=== PATIENT | male | born 1955 | race Caucasian/White ===

== ENCOUNTER 2019-05-11 07:51 | Inpatient (IN) | payer BC ==
[~2019-05-11 07:51] MED LIST: Acetaminophen 325 MG Tab PO SCH; Bisacodyl 5 MG Tab PO PRN; CEFUROXIME ONE; Cyclobenzaprine 10 MG Tab PO PRN; EPINEPHRINE ONE; Famotidine 20 MG Tab PO SCH; HYDROmorphone 0.5 MG/0.5 ML Syringe IVPUSH PRN; Iodine/Sodium Iodide 2% Tincture 30 ML Bottle ONE; KETOROLAC ONE; Ketorolac 15 MG/ML SDV IVPUSH PRN; Lactated Ringers 1,000 ML IV SCH; Lidocaine 1% 4 ML ONE; Lidocaine 1%/Sod Bicarbonate in NS 8.4% 1 ML Syringe IDERM PRN; Magnesium Hydroxide 400 MG/5 ML Susp 30 ML Cup PO PRN; Midazolam 1 MG/ML 2 ML SDV ONE; Naloxone 0.4 MG/ML SDV IVPUSH PRN; Ondansetron 4 MG/2 ML SDV IVPUSH PRN; Pregabalin 25 MG Cap PO SCH; Propofol 200 MG/20 ML SDV ONE; SODIUM CHLORIDE 0.9% ONE; Sennosides 8.6 MG Tab PO PRN; Sodium Chloride 0.9% 10 ML Syringe FLUSH PRN; Vancomycin 1 GM SDV ONE; ceFAZolin 1 GM Vial ONE; ceFAZolin 2 GM in Premix Bag 1 BAG IV SCH; fentaNYL 100 MCG/2 ML SDV ONE; oxyCODONE ER 10 MG TAB.ER PO SCH
[2019-05-11] MEDS ORDERED: Bupivacaine 0.25% 10 ML SDV ONE (07:58)
[2019-05-11] MEDS ORDERED: ceFAZolin 1 GM Vial ONE (08:00)
--- NOTE | 2019-05-11 08:15 | PCM.PREANE ---
Preanesthetic Assessment - Procedure Proposed Procedure: right total hip - Anesthesia/Transfusion/Family Hx Anesthesia History: Prior Anesthesia Reaction Family History of Anesthesia Reaction: No Transfusion History: No Prior Transfusion(s) - Review of Systems General: No Symptoms Pulmonary: No Symptoms Cardiovascular: No Symptoms Gastrointestinal: No Symptoms Neurological: No Symptoms Other: Reports: None - Physical Assessment NPO Status Date: 05/10/19 NPO Status Time: 23:00 Height: 1.83 m Weight: 81.193 kg ASA Class: 2 Mental Status: Alert & Oriented x3 Airway Class: Mallampati = 1 Dentition: Reports: Partial Thyro-Mental Finger Breadths: 3 Mouth Opening Finger Breadths: 3 ROM/Head Extension: Limited/Partial (neck pain to the right) Lungs: Clear to Auscultation, Normal Respiratory Effort Cardiovascular: Regular Rate, Regular Rhythm - Lab Values: Laboratory Last Values MRSA (PCR) Negative 04/20/19 11:50 - Imaging/EKG Impressions: EKG NSR rate of 72 - Allergies Allergies/Adverse Reactions: Allergies Allergy/AdvReac Type Severity Reaction Status Date / Time morphine Allergy Hives Verified 05/10/19 13:16 - Anesthesia Plan Pre-Op Medication Ordered: Beta Kenny Beta Kenny: Metoprolol Med Last Dose Date: 05/10/19 Med Last Dose Time: 20:00 - Acknowledgements Anesthesia Type Planned: Spinal Pt an Appropriate Candidate for the Planned Anesthesia: Yes Alternatives and Risks of Anesthesia Discussed w Pt/Guardian: Yes Pt/Guardian Understands and Agrees with Anesthesia Plan: Yes PreAnesthesia Questionnaire HEENT History: Reports: None Cardiovascular History: Reports: Afib Respiratory History: Reports: PE Gastrointestinal History: Reports: None Genitourinary History: Reports: None Musculoskeletal History: Reports: Osteoarthritis Neurological History: Reports: Other (See Below) Other Neuro History: lumbar degenerative disc disease Psychiatric History: Reports: None Endocrine/Metabolic History: Reports: None Hematologic History: Reports: None Immunologic History: Reports: None Oncologic (Cancer) History: Reports: None Dermatologic History: Reports: None - Past Surgical History Head Surgeries/Procedures: Reports: None HEENT Surgical History: Reports: Myringotomy w Tube(s) Cardiovascular Surgical History: Reports: None Respiratory Surgical History: Reports: None GI Surgical History: Reports: None Female Surgical History: Reports: None Male Surgical History: Reports: None Endocrine Surgical History: Reports: None Neurological Surgical History: Reports: Laminectomy Other Neurological Surgeries/Procedures: L4L5 LAMINECTOMY Musculoskeletal Surgical History: Reports: Other (See Below) Other Musculoskeletal Surgeries/Procedures:: RIGHT TIB/FIB FX WITH MULTIPLE SURGIERES, LEFT ACL REPAIR Oncologic Surgical History: Reports: None Dermatological Surgical History: Reports: None - SUBSTANCE USE Smoking Status *Q: Never Smoker Tobacco Use Within Last Twelve Months: No Second Hand Smoke Exposure: No Days Per Week of Alcohol Use: 0 Number of Drinks Per Day: 0 Total Drinks Per Week: 0 Recreational Drug Use History: No - HOME MEDS Home Medications: Home Meds Aspirin [Ecotrin EC] 81 mg PO DAILY 05/10/19 [History] Cholecalciferol (Vitamin D3) [Vitamin D3] 5,000 unit PO DAILY 05/10/19 [History] Meloxicam 15 mg PO DAILY PRN 05/10/19 [History] Metoprolol Succinate 25 mg PO BEDTIME 05/10/19 [History] Multivitamin [Daily [place]] 1 tab PO DAILY 05/10/19 [History] - CURRENT (IN HOUSE) MEDS Current Meds: Current Medications Acetaminophen (Tylenol) 975 mg PO ONETIME HAZEL Stop: 05/11/19 14:00 Apixaban (Eliquis) 2.5 mg PO BID HAZEL Bisacodyl (Dulcolax) 5 mg PO DAILY PRN PRN Reason: Constipation Cyclobenzaprine HCl (Flexeril) 10 mg PO TID PRN PRN Reason: Spasms Docusate Sodium (Colace) 100 mg PO BID HAZEL Famotidine (Pepcid) 20 mg PO Q12H HAZEL Hydromorphone HCl (Dilaudid) 0.2 mg IVPUSH Q2H PRN PRN Reason: Pain (moderate 4-6) Lactated Ringer's (Ringers, Lactated) 1,000 mls @ 125 mls/hr IV ASDIRECTED HAZEL Stop: 05/11/19 23:00 Cefazolin Sodium/Dextrose 2 gm (/ Premix) 50 mls @ 100 mls/hr IV Q8H HAZEL Stop: 05/11/19 23:29 Ketorolac Tromethamine (Toradol) 15 mg IVPUSH Q6H PRN PRN Reason: Pain Lidocaine/Sodium Bicarbonate (Buffered Lidocaine 1% In Ns 8.4%) 0.25 ml IDERM ONETIME PRN PRN Reason: Prior to IV Start Stop: 05/11/19 23:00 Magnesium Hydroxide (Milk Of Magnesia) 30 ml PO BID PRN PRN Reason: Constipation Naloxone HCl (Narcan) 0.1 mg IVPUSH Q5M PRN PRN Reason: Oversedation Ondansetron HCl (Zofran) 4 mg IVPUSH Q6H PRN PRN Reason: Nausea/Vomiting Oxycodone HCl (Oxycontin) 10 mg PO ONETIME HAZEL Stop: 05/11/19 14:00 Oxycodone/Acetaminophen (Percocet 325-5 Mg) 1 - 2 tab PO Q4H PRN PRN Reason: Pain Pregabalin (Lyrica) 50 mg PO ONETIME HAZEL Stop: 05/11/19 14:00 Senna (Senna) 8.6 mg PO BID PRN PRN Reason: Constipation Sodium Chloride (Saline Flush) 10 ml FLUSH ASDIRECTED PRN PRN Reason: Keep Vein Open Stop: 05/11/19 23:00 Discontinued Medications Bupivacaine HCl (Sensorcaine-Mpf 0.25%) Confirm Administered Dose 30 ml .ROUTE .STK-MED ONE Stop: 05/11/19 07:59 Cefazolin Sodium (Ancef) Confirm Administered Dose 2 gm .ROUTE .STK-MED ONE Stop: 05/11/19 07:39 Epinephrine HCl 0.3 mg/Cefuroxime Sodium 750 mg/Ketorolac Tromethamine 30 mg/ Sodium Chloride 27.9 ml 0 mg .XX ONETIME ONE Stop: 05/11/19 06:38 Fentanyl (Sublimaze) Confirm Administered Dose 100 mcg .ROUTE .STK-MED ONE Stop: 05/11/19 07:38 Lidocaine HCl (Xylocaine-Mpf 1%) Confirm Administered Dose 4 mls @ as directed .ROUTE .STK-MED ONE Stop: 05/11/19 07:38 Iodine (Iodine 2% Mild Tincture) Confirm Administered Dose 30 ml .ROUTE .STK- MED ONE Stop: 05/11/19 07:51 Midazolam HCl (Versed 1 Mg/Ml) Confirm Administered Dose 2 mg .ROUTE .STK-MED ONE Stop: 05/11/19 07:38 Propofol (Diprivan 20 Ml) Confirm Administered Dose 600 mg .ROUTE .STK-MED ONE Stop: 05/11/19 07:38 Tranexamic Acid (Cyklokapron) Confirm Administered Dose 1,000 mg .ROUTE .STK- MED ONE Stop: 05/11/19 07:51 Vancomycin HCl (Vancomycin) Confirm Administered Dose 1 gm .ROUTE .STK-MED ONE Stop: 05/11/19 07:51
[2019-05-11] MEDS ORDERED: Ondansetron 4 MG/2 ML SDV ONE (09:54)
[2019-05-11] MEDS ORDERED: Dexamethasone 4 MG/ML 5 ML MDV ONE (09:54)
[2019-05-11] MEDS ORDERED: fentaNYL 100 MCG/2 ML SDV IVPUSH PRN (10:40)
[2019-05-11] MEDS ORDERED: Ondansetron 4 MG/2 ML SDV IVPUSH PRN (10:40)
[2019-05-11] MEDS ORDERED: HYDROmorphone 0.5 MG/0.5 ML Syringe IVPUSH PRN (10:40)
[2019-05-11] MEDS ORDERED: Propofol 200 MG/20 ML SDV ONE (10:46)
[2019-05-11] MEDS ORDERED: Ketorolac 30 MG/ML SDV ONE (11:28)
--- NOTE | 2019-05-11 11:49 | PCM.POSTAN ---
POST ANESTHESIA ASSESSMENT - MENTAL STATUS Mental Status: Alert, Oriented - VITAL SIGNS Vital Signs: Last Vital Signs 1142 92/60 65 8 97.9 98% - RESPIRATORY Respiratory Status: Respiratory Rate WNL, Airway Patent, O2 Saturation Stable, Supplemental Oxygen - CARDIOVASCULAR CV Status: Pulse Rate WNL, Blood Pressure Stable - GASTROINTESTINAL GI Status: No Symptoms - PAIN Pain Score: 0 - POST OP HYDRATION Hydration Status: Adequate & Stable
[2019-05-11] MEDS: ceFAZolin 2 GM in Premix Bag 1 BAG IV SCH (15:33)
[2019-05-11] MEDS: Acetaminophen/oxyCODONE 325-5 MG Tab PO PRN ×2 (16:12→20:41)
--- NOTE | 2019-05-11 16:14 | CR ---
Pelvis and right hip: AP view of the pelvis was obtained as well as lateral view of the right hip. Comparison: No prior pelvis or hip exam. Right hip prosthesis is seen. Components are aligned. Soft tissue air is noted from the surgical procedure. Mild joint space narrowing is seen within the left hip. No acute abnormality is seen. Impression: 1. Recently placed right hip prosthesis which appears within normal limits. 2. Mild joint space narrowing within the left hip. Diagnostic code #2 This report was dictated in [place] Standard Time
[2019-05-11] MEDS: Docusate Sodium 100 MG Cap PO SCH (20:40)
[2019-05-11] MEDS: Famotidine 20 MG Tab PO SCH (20:41)
[2019-05-11] MEDS ORDERED: Metoprolol Succinate 25 MG Tab.ER PO SCH (21:00)
[2019-05-12] MEDS: Acetaminophen/oxyCODONE 325-5 MG Tab PO PRN ×2 (00:37→06:22)
[2019-05-12] MEDS: ceFAZolin 2 GM in Premix Bag 1 BAG IV SCH ×2 (00:40→06:30)
--- NOTE | 2019-05-12 07:50 | PCM48HPAN ---
Post Anesthesia Note - EVALUATION WITHIN 48HRS OF ANESTHETIC Vital Signs in Normal Range: Yes Patient Participated in Evaluation: Yes Respiratory Function Stable: Yes Airway Patent: Yes Cardiovascular Function Stable: Yes Hydration Status Stable: Yes Pain Control Satisfactory: Yes Nausea and Vomiting Control Satisfactory: Yes Mental Status Recovered: Yes Vital Signs: Last Vital Signs Temp 36.3 C 05/12/19 04:54 Pulse 55 L 05/12/19 04:54 Resp 16 05/12/19 04:54 BP 128/81 05/12/19 04:54 Pulse Ox 95 05/12/19 04:54
[2019-05-12] MEDS ORDERED: Multivitamins,Therapeutic Tab PO SCH (09:00)
[2019-05-12] MEDS ORDERED: Aspirin 81 MG Tab.EC PO SCH (09:00)
[2019-05-12] MEDS ORDERED: Apixaban 2.5 MG Tab PO SCH (09:00)
[2019-05-12] MEDS ORDERED: Cholecalciferol (Vitamin D3) 5,000 UNIT Tab PO SCH (09:00)
[2019-05-12] MEDS: Famotidine 20 MG Tab PO SCH (09:17)
[2019-05-12] MEDS: Docusate Sodium 100 MG Cap PO SCH (09:18)
--- NOTE | 2019-05-12 11:05 | PCM.CONS ---
H&P History of Present Illness - General Date of Service: 05/12/19 Admit Problem/Dx: Admission Diagnosis/Problem Admission Diagnosis/Problem Osteoarthritis of hip - History of Present Illness Initial Comments - Free Text/Narative: Patient comes in for elective right hip replacement for osteoarthritis Right Hip Pain Score (Numeric/FACES): 5 - Related Data Allergies/Adverse Reactions: Allergies Allergy/AdvReac Type Severity Reaction Status Date / Time morphine Allergy Hives Verified 05/11/19 12:40 Home Medications: Home Meds Aspirin [Ecotrin EC] 162 mg PO DAILY 05/10/19 [History] Cholecalciferol (Vitamin D3) [Vitamin D3] 5,000 unit PO DAILY 05/10/19 [History] Metoprolol Succinate 12.5 mg PO BEDTIME 05/10/19 [History] Multivitamin [Daily [place]] 1 tab PO DAILY 05/10/19 [History] Acetaminophen/oxyCODONE [Percocet 325-5 MG] 1 - 2 tab PO Q4H PRN #60 tablet 05/19 [Rx] Apixaban [Eliquis] 2.5 mg PO BID #70 tablet 05/12/19 [Rx] Bisacodyl [Dulcolax] 5 mg PO DAILY PRN tablet 05/12/19 [Rx] Cyclobenzaprine [Flexeril] 10 mg PO TID PRN #40 tablet 05/12/19 [Rx] Docusate Sodium [Colace] 100 mg PO BID cap 05/12/19 [Rx] Famotidine [Pepcid] 20 mg PO Q12H tablet 05/12/19 [Rx] Sennosides [Senna] 8.6 mg PO BID PRN tablet 05/12/19 [Rx] Past Medical History HEENT History: Reports: None Cardiovascular History: Reports: Afib Respiratory History: Reports: PE Gastrointestinal History: Reports: None Genitourinary History: Reports: None Musculoskeletal History: Reports: Osteoarthritis Neurological History: Reports: Other (See Below) Other Neuro History: lumbar degenerative disc disease Psychiatric History: Reports: None Endocrine/Metabolic History: Reports: None Hematologic History: Reports: None Immunologic History: Reports: None Oncologic (Cancer) History: Reports: None Dermatologic History: Reports: None - Past Surgical History Head Surgeries/Procedures: Reports: None HEENT Surgical History: Reports: Myringotomy w Tube(s) Cardiovascular Surgical History: Reports: None Respiratory Surgical History: Reports: None GI Surgical History: Reports: None Male Surgical History: Reports: None Endocrine Surgical History: Reports: None Neurological Surgical History: Reports: Laminectomy Other Neurological Surgeries/Procedures: L4L5 LAMINECTOMY Musculoskeletal Surgical History: Reports: Other (See Below) Other Musculoskeletal Surgeries/Procedures:: RIGHT TIB/FIB FX WITH MULTIPLE SURGIERES, LEFT ACL reconstruction with cadaver ligament Oncologic Surgical History: Reports: None Dermatological Surgical History: Reports: None Social & Family History - Tobacco Use Smoking Status *Q: Never Smoker Second Hand Smoke Exposure: No - Caffeine Use Caffeine Use: Reports: None - Alcohol Use Days Per Week of Alcohol Use: 0 Number of Drinks Per Day: 0 Total Drinks Per Week: 0 - Recreational Drug Use Recreational Drug Use: No Drug Use in Last 12 Months: No H&P Review of Systems - Review of Systems: Review Of Systems: See Below General: Denies: Fever, Chills, Malaise, Weakness, Fatigue HEENT: Denies: Headaches, Post Nasal Drip, Sinus Congestion, Sore Throat, Vertigo Pulmonary: Denies: Shortness of Breath, Wheezing, Pleuritic Chest Pain, Cough, Sputum, Hemoptysis Cardiovascular: Denies: Chest Pain, Palpitations, Dyspnea on Exertion, Orthopnea , PND, Edema, Lightheadedness, Syncope, Claudication Gastrointestinal: Denies: Abdominal Pain, Anorexia, Black Stool, Bloody Stool, Constipation, Diarrhea, Decreased Appetite, Difficulty Swallowing, Distension, Nausea, Vomiting Genitourinary: Denies: Dysuria, Frequency, Burning, Pain, Urgency Musculoskeletal: Reports: Joint Pain, Joint Swelling, Muscle Pain Skin: Denies: Cyanosis, Jaundice, Mottled, Diaphoresis, Dryness, Bruising Psychiatric: Denies: Confusion, Depression, Mood Lability, Anxiety, Agitation Neurological: Denies: Confusion, Dizziness, Headache, Numbness Hematologic/Lymphatic: Denies: Anemia, Easy Bleeding Exam - Exam Exam: See Below - Vital Signs Vital Signs: Last Vital Signs Temp 97.5 F 05/12/19 09:11 Pulse 57 L 05/12/19 09:11 Resp 18 05/12/19 09:11 BP 108/63 05/12/19 09:11 Pulse Ox 99 05/12/19 09:11 Weight: 85.684 kg - Exam General: Alert, Oriented, Cooperative. No: Mild Distress HEENT: Conjunctiva Clear, EACs Clear, EOMI, Hearing Intact, Mucosa Moist & [place] Neck: Supple, Trachea Midline, +2 Carotid Pulse wo Bruit, Full Range of Motion. No: Lymphadenopathy Lungs: Clear to Auscultation, Normal Respiratory Effort. No: Crackles, Rales, Rub, Stridor, Wheezing Cardiovascular: Regular Rate, Regular Rhythm. No: Systolic Murmur, Diastolic Murmur, Rubs, Gallop/S3, Gallop/S4 GI/Abdominal Exam: Normal Bowel Sounds, Soft, Non-Tender, No Organomegaly, No Distention Back Exam: Normal Inspection Extremities: Normal Inspection, Limited Range of Motion Neuro Extensive - Mental Status: Alert, Oriented x3, Normal Mood/Affect Psychiatric: Alert - Patient Data Result Diagrams: 05/12/19 05:25 05/12/19 05:25 Sepsis Event Note - Evaluation Sepsis Screening Result: No Definite Risk - Focused Exam Vital Signs: Vital Signs Temp Pulse Resp BP Pulse Ox 05/12/19 09:11 97.5 F 57 L 18 108/63 99 05/12/19 04:54 97.3 F 55 L 16 128/81 95 05/12/19 00:40 97.3 F 62 16 137/81 95 Date Exam was Performed: 05/12/19 Time Exam was Performed: 10:58 Consult PN Assessment/Plan POD#: 1 Procedures: Procedures ANTINUCLEAR ANTIBODIES (10/30/16) ASSAY OF CREATININE (11/29/18) C-REACTIVE PROTEIN (10/30/16) COMPLETE CBC W/AUTO DIFF WBC (10/30/16) DXA BONE DENSITY AXIAL (05/04/19) MRI LUMBAR SPINE W/O & W/DYE (11/29/18) RBC SED RATE AUTOMATED (10/30/16) RHEUMATOID FACTOR TEST QUAL (10/30/16) ROUTINE VENIPUNCTURE (11/29/18) VITAMIN D 25 HYDROXY (10/06/13) X-RAY EXAM CHEST 2 VIEWS (05/04/19) X-RAY EXAM L-2 SPINE 4/>VWS (11/29/18) X-RAY EXAM NECK SPINE 2-3 VW (05/04/19) (1) Osteoarthritis of right hip SNOMED Code(s): 123933816240700 Code(s): M16.11 - UNILATERAL PRIMARY OSTEOARTHRITIS, RIGHT HIP Current Visit: Yes Qualifiers: Osteoarthritis type: primary Qualified Code(s): M16.11 - Unilateral primary osteoarthritis, right hip Assessment:: SERGIO on 05/11 No post operative anemia Will be discharged on Eliquis Aspirin on hold (2) Atrial fibrillation SNOMED Code(s): 65683821 Code(s): I48.91 - UNSPECIFIED ATRIAL FIBRILLATION Current Visit: Yes Qualifiers: Atrial fibrillation type: paroxysmal Qualified Code(s): I48.0 - Paroxysmal atrial fibrillation Assessment:: Rate controlled with metoprolol (3) On aspirin at home SNOMED Code(s): 006125081 Code(s): Z79.82 - CUSTODIAL (CURRENT) USE OF ASPIRIN Current Visit: Yes Assessment:: Will place on hold Recommend PCP to re-evaluate after Eliquis has been discontinued (4) Hx pulmonary embolism SNOMED Code(s): 685550810 Code(s): Z86.711 - PERSONAL HISTORY OF PULMONARY EMBOLISM Current Visit: Yes Comment: Provoked 1993- after tibia fracture repair surgery On coumadin for <6months after Problem List Initiated/Reviewed/Updated: Yes Plan: Discharge today on Eliquis Hold Aspirin Recommend PCP to evaluate re-starting aspirin as an outpatient after patient is off Eliquis Requesting Provider: Julio Cesar [place] Date Consult Requested: 05/11/19 Reason for Consult: Stefany-operative evaluation Patient History Reviewed: Yes Admission H&P Reviewed: Yes Notified Requestor: Yes Time Spent (in minutes): 75
--- NOTE | 2019-05-12 15:03 | PCM.SURGPN ---
- General Info Date of Service: 05/12/19 POD#: 1 Functional Status: Reports: Pain Controlled, Tolerating Diet, Ambulating, Urinating, Incentive Spirometry, Other (The pt states he is doing well.) - Patient Data Vitals - Most Recent: Last Vital Signs Temp 97.5 F 05/12/19 09:11 Pulse 57 L 05/12/19 09:11 Resp 18 05/12/19 09:11 BP 108/63 05/12/19 09:11 Pulse Ox 99 05/12/19 09:11 Weight - Most Recent: 188 lb 14.4 oz I&O - Last 24 Hours: Intake & Output 05/12/19 05/12/19 05/12/19 06:59 14:59 22:59 Intake Total 950 120 Output Total 1750 Balance -800 120 Lab Results Last 24 Hrs: Laboratory Results - last 24 hr 05/12/19 05/12/19 Range/Units 05:25 05:25 WBC 11.44 H (4.23-9.07) K/mm3 RBC 4.82 (4.63-6.08) M/mm3 Hgb 14.2 (13.7-17.5) gm/dl Hct 41.8 (40.1-51.0) % MCV 86.7 (79.0-92.2) fl MCH 29.5 (25.7-32.2) pg MCHC 34.0 (32.2-35.5) g/dl RDW Std Deviation 39.7 (35.1-43.9) fL Plt Count 255 (163-337) K/mm3 MPV 9.1 L (9.4-12.3) fl Sodium 136 (136-145) mEq/L Potassium 4.1 (3.5-5.1) mEq/L Chloride 103 (98-107) mEq/L Carbon Dioxide 26 (21-32) mEq/L Anion Gap 11.1 (5-15) BUN 20 H (7-18) mg/dL Creatinine 1.2 (0.7-1.3) mg/dL Est Cr Clr Drug Dosing 70.95 mL/min Estimated GFR (MDRD) > 60 (>60) mL/min BUN/Creatinine Ratio 16.7 (14-18) Glucose 133 H (80-115) mg/dL Calcium 8.4 L (8.5-10.1) mg/dL Total Bilirubin 0.6 (0.2-1.0) mg/dL AST 34 (15-37) U/L ALT 31 (16-63) U/L Alkaline Phosphatase 62 (46-116) U/L Total Protein 6.2 L (6.4-8.2) g/dl Albumin 3.2 L (3.4-5.0) g/dl Globulin 3.0 gm/dL Albumin/Globulin Ratio 1.1 (1-2) Med Orders - Current: Current Medications Apixaban (Eliquis) 2.5 mg PO BID [facility] Last Admin: 05/12/19 09:18 Dose: 2.5 mg Aspirin (Halfprin) 81 mg PO DAILY [facility] Last Admin: 05/12/19 09:18 Dose: 81 mg Bisacodyl (Dulcolax) 5 mg PO DAILY PRN PRN Reason: Constipation Cholecalciferol (Vitamin D3) 5,000 unit PO DAILY [facility] Last Admin: 05/12/19 09:18 Dose: 5,000 unit Cyclobenzaprine HCl (Flexeril) 10 mg PO TID PRN PRN Reason: Spasms Last Admin: 05/11/19 20:40 Dose: 10 mg Docusate Sodium (Colace) 100 mg PO BID [facility] Last Admin: 05/12/19 09:18 Dose: 100 mg Famotidine (Pepcid) 20 mg PO Q12H [facility] Last Admin: 05/12/19 09:17 Dose: 20 mg Hydromorphone HCl (Dilaudid) 0.2 mg IVPUSH Q2H PRN PRN Reason: Pain (moderate 4-6) Ketorolac Tromethamine (Toradol) 15 mg IVPUSH Q6H PRN PRN Reason: Pain Last Admin: 05/11/19 19:30 Dose: 15 mg Magnesium Hydroxide (Milk Of Magnesia) 30 ml PO BID PRN PRN Reason: Constipation Metoprolol Succinate (Toprol Xl) 25 mg PO BEDTIME [facility] Last Admin: 05/11/19 20:40 Dose: 25 mg Multivitamins (Thera) 1 each PO DAILY [facility] Last Admin: 05/12/19 09:17 Dose: 1 each Naloxone HCl (Narcan) 0.1 mg IVPUSH Q5M PRN PRN Reason: Oversedation Ondansetron HCl (Zofran) 4 mg IVPUSH Q6H PRN PRN Reason: Nausea/Vomiting Oxycodone/Acetaminophen (Percocet 325-5 Mg) 1 - 2 tab PO Q4H PRN PRN Reason: Pain Last Admin: 05/12/19 06:22 Dose: 2 tab Senna (Senna) 8.6 mg PO BID PRN PRN Reason: Constipation Discontinued Medications Acetaminophen (Tylenol) 975 mg PO ONETIME [facility] Stop: 05/11/19 14:00 Last Admin: 05/11/19 08:13 Dose: 975 mg Bupivacaine HCl (Sensorcaine-Mpf 0.25%) Confirm Administered Dose 30 ml .ROUTE .STK-MED ONE Stop: 05/11/19 07:59 Last Admin: 05/11/19 11:06 Dose: 30 ml Cefazolin Sodium (Ancef) Confirm Administered Dose 2 gm .ROUTE .STK-MED ONE Stop: 05/11/19 07:39 Last Admin: 05/11/19 10:58 Dose: 2 gm Cefazolin Sodium (Ancef) 2 gm .ROUTE .STK-MED ONE Stop: 05/11/19 08:01 Epinephrine HCl 0.3 mg/Cefuroxime Sodium 750 mg/Ketorolac Tromethamine 30 mg/ Sodium Chloride 27.9 ml 0 mg .XX ONETIME ONE Stop: 05/11/19 06:38 Last Admin: 05/11/19 11:07 Dose: 780.3 mg Dexamethasone (Dexamethasone) Confirm Administered Dose 20 mg .ROUTE .STK-MED ONE Stop: 05/11/19 09:55 Famotidine (Pepcid) 20 mg PO Q12H [facility] Last Admin: 05/11/19 13:11 Dose: Not Given Fentanyl (Sublimaze) Confirm Administered Dose 100 mcg .ROUTE .STK-MED ONE Stop: 05/11/19 07:38 Fentanyl (Sublimaze) 50 mcg IVPUSH Q5M PRN PRN Reason: Pain Stop: 05/11/19 18:00 Hydromorphone HCl (Dilaudid) 0.5 mg IVPUSH Q10M PRN PRN Reason: Pain (severe 7-10) Stop: 05/11/19 18:00 Lactated Ringer's (Ringers, Lactated) 1,000 mls @ 125 mls/hr IV ASDIRECTED [facility] Stop: 05/11/19 23:00 Last Admin: 05/11/19 08:40 Dose: 125 mls/hr Lidocaine HCl (Xylocaine-Mpf 1%) Confirm Administered Dose 4 mls @ as directed .ROUTE .STK-MED ONE Stop: 05/11/19 07:38 Cefazolin Sodium/Dextrose 2 gm (/ Premix) 50 mls @ 100 mls/hr IV Q8H [facility] Stop: 05/12/19 07:59 Last Admin: 05/12/19 06:30 Dose: 100 mls/hr Iodine (Iodine 2% Mild Tincture) Confirm Administered Dose 30 ml .ROUTE .STK- MED ONE Stop: 05/11/19 07:51 Last Admin: 05/11/19 11:00 Dose: 18 ml Ketorolac Tromethamine (Toradol) Confirm Administered Dose 30 mg .ROUTE .STK- MED ONE Stop: 05/11/19 11:29 Lidocaine/Sodium Bicarbonate (Buffered Lidocaine 1% In Ns 8.4%) 0.25 ml IDERM ONETIME PRN PRN Reason: Prior to IV Start Stop: 05/11/19 23:00 Last Admin: 05/11/19 08:40 Dose: 0.25 ml Midazolam HCl (Versed 1 Mg/Ml) Confirm Administered Dose 2 mg .ROUTE .STK-MED ONE Stop: 05/11/19 07:38 Ondansetron HCl (Zofran) Confirm Administered Dose 4 mg .ROUTE .STK-MED ONE Stop: 05/11/19 09:55 Ondansetron HCl (Zofran) 4 mg IVPUSH ONETIME PRN PRN Reason: Nausea/Vomiting Stop: 05/11/19 18:00 Oxycodone HCl (Oxycontin) 10 mg PO ONETIME [facility] Stop: 05/11/19 14:00 Last Admin: 05/11/19 08:13 Dose: 10 mg Pregabalin (Lyrica) 50 mg PO ONETIME [facility] Stop: 05/11/19 14:00 Last Admin: 05/11/19 08:14 Dose: 50 mg Propofol (Diprivan 20 Ml) Confirm Administered Dose 600 mg .ROUTE .STK-MED ONE Stop: 05/11/19 07:38 Propofol (Diprivan 20 Ml) Confirm Administered Dose 600 mg .ROUTE .STK-MED ONE Stop: 05/11/19 10:47 Sodium Chloride (Saline Flush) 10 ml FLUSH ASDIRECTED PRN PRN Reason: Keep Vein Open Stop: 05/11/19 23:00 Tranexamic Acid (Cyklokapron) Confirm Administered Dose 1,000 mg .ROUTE .STK- MED ONE Stop: 05/11/19 07:51 Last Admin: 05/11/19 11:09 Dose: 1,000 mg Vancomycin HCl (Vancomycin) Confirm Administered Dose 1 gm .ROUTE .STK-MED ONE Stop: 05/11/19 07:51 Last Admin: 05/11/19 11:08 Dose: 1 gm - Exam Wound/Incisions: Dressing Dry and Intact General: Alert, Cooperative, No Acute Distress Lungs: Normal Respiratory Effort Extremities: Other (NVS intact for BLE. Suki's negative. Right thigh soft, nontender.) Sepsis Event Note - Evaluation Sepsis Screening Result: No Definite Risk - Focused Exam Vital Signs: Vital Signs Temp Pulse Resp BP Pulse Ox 05/12/19 09:11 97.5 F 57 L 18 108/63 99 05/12/19 04:54 97.3 F 55 L 16 128/81 95 Date Exam was Performed: 05/12/19 Time Exam was Performed: 15:00 - Problem List Review Problem List Initiated/Reviewed/Updated: Yes - My Orders Last 24 Hours: Active Orders 24 hr Category Date Time Status Ready for Discharge [RC] PER UNIT ROUTINE Care 05/12/19 06:58 Active Apixaban [Eliquis] Med 05/12/19 09:00 Active 2.5 mg PO BID Aspirin [Halfprin] Med 05/12/19 09:00 Active 81 mg PO DAILY Cholecalciferol (Vitamin D3) [Vitamin D3] Med 05/12/19 09:00 Active 5,000 unit PO DAILY Docusate Sodium [Colace] Med 05/11/19 21:00 Active 100 mg PO BID Famotidine [Pepcid] Med 05/11/19 21:00 Active 20 mg PO Q12H Metoprolol Succinate [Toprol XL] Med 05/11/19 21:00 Active 25 mg PO BEDTIME Multivitamins,Therapeutic [Thera] Med 05/12/19 09:00 Active 1 each PO DAILY Medication Orders Apixaban (Eliquis) 2.5 mg PO BID [facility] Last Admin: 05/12/19 09:18 Dose: 2.5 mg Aspirin (Halfprin) 81 mg PO DAILY [facility] Last Admin: 05/12/19 09:18 Dose: 81 mg Bisacodyl (Dulcolax) 5 mg PO DAILY PRN PRN Reason: Constipation Cholecalciferol (Vitamin D3) 5,000 unit PO DAILY [facility] Last Admin: 05/12/19 09:18 Dose: 5,000 unit Cyclobenzaprine HCl (Flexeril) 10 mg PO TID PRN PRN Reason: Spasms Last Admin: 05/11/19 20:40 Dose: 10 mg Docusate Sodium (Colace) 100 mg PO BID [facility] Last Admin: 05/12/19 09:18 Dose: 100 mg Admin: 05/11/19 20:40 Dose: 100 mg Famotidine (Pepcid) 20 mg PO Q12H [facility] Last Admin: 05/12/19 09:17 Dose: 20 mg Admin: 05/11/19 20:41 Dose: 20 mg Hydromorphone HCl (Dilaudid) 0.2 mg IVPUSH Q2H PRN PRN Reason: Pain (moderate 4-6) Ketorolac Tromethamine (Toradol) 15 mg IVPUSH Q6H PRN PRN Reason: Pain Last Admin: 05/11/19 19:30 Dose: 15 mg Magnesium Hydroxide (Milk Of Magnesia) 30 ml PO BID PRN PRN Reason: Constipation Metoprolol Succinate (Toprol Xl) 25 mg PO BEDTIME [facility] Last Admin: 05/11/19 20:40 Dose: 25 mg Multivitamins (Thera) 1 each PO DAILY [facility] Last Admin: 05/12/19 09:17 Dose: 1 each Naloxone HCl (Narcan) 0.1 mg IVPUSH Q5M PRN PRN Reason: Oversedation Ondansetron HCl (Zofran) 4 mg IVPUSH Q6H PRN PRN Reason: Nausea/Vomiting Oxycodone/Acetaminophen (Percocet 325-5 Mg) 1 - 2 tab PO Q4H PRN PRN Reason: Pain Last Admin: 05/12/19 06:22 Dose: 2 tab Admin: 05/12/19 00:37 Dose: 2 tab Admin: 05/11/19 20:41 Dose: 2 tab Admin: 05/11/19 16:12 Dose: 2 tab Senna (Senna) 8.6 mg PO BID PRN PRN Reason: Constipation - Assessment Assessment (Free Text/Narrative):: POD#1 - right SERGIO - Plan Plan (Free Text/Narrative):: 1. Hgb 14.2. 2. Eliquis 2.5mg PO BID (due to pt with hx PE), frequent mobility, TEDs. 3. SERGIO precautions. WBAT RLE. 4. Discharge to home today if cleared by Hospitalist service. The pt's case was discussed with Dr. Washington.
--- NOTE | 2019-05-12 15:04 | PCM.DCSUM1 ---
Discharge Summary - Hospital Course Brief History: Max is a 63 yo male who underwent right SERGIO with Dr. Washington on 05-11-2019. The procedure was completed under spinal anesthesia with sedation. The pt tolerated the procedure well and was admitted to the Medical-Surgical Unit. Medical management was provided by the Hospitalist service. The pt's Hospital course was uneventful. The pt's Hgb on POD#1 was 14.2. On POD#1, Eliquis 2.5mg PO BID was initiated for VTE prophylaxis due to pt's personal hx PE. SCDs and TEDs were also ordered. A Mepilex dressing was placed at the incision site at the time of surgery and remained clean and dry. The pt participated in P.T. and O.T. and progressed well. He followed the SERGIO precautions. The pt was allowed to WBAT. On POD#1, the pt was deemed appropriate to discharge to home with his . - Discharge Data Discharge Date: 05/12/19 Discharge Disposition: Home, Self-Care 01 Condition: Good - Referral to Home Health Primary Care Physician: LINA Vicente - Patient Summary/Data Consults: Consultations 05/11/19 06:37 OT Evaluation and Treatment [CONS] Routine PT Evaluation and Treatment [CONS] Routine 05/11/19 06:38 Consult to Physician [CONS] Routine - Patient Instructions Diet: Usual Diet as Tolerated Activity: Apply Ice, As Tolerated, Elevate Extremity, Full Weight Bearing Activity, Other: Follow the total hip precautions. Driving: Do Not Drive Showering/Bathing: May Shower Wound/Incision Care: Keep Operative Site/Wound Site Clean and Dry, Do NOT Change Dressing Notify Provider of: Fever, Increased Pain, Swelling and Redness, Drainage, Nausea and/or Vomiting Other/Special Instructions: Please get up and moving around EVERY HOUR while awake. This helps to prevent blood clots. Please use your walker and have help with mobility as needed. Take a short walk in your home every hour while awake. Please take Eliquis 2.5mg twice daily. This medication is a blood thinner to decrease the risk of blood clots in the lungs and the legs. At home , please complete the exercises that you learned during the Hospital stay. Schedule for physical therapy. Follow the total hip precautions. Use the pain medication as needed. The medication may cause drowsiness and constipation. Contact your primary care provider for instructions if you are constipated. You may use a stool softener like docusate sodium or Colace 100mg twice daily and/or a laxative like Miralax daily for constipation. Increase your water and fiber intake while you are using the pain medication. Discontinue use of the pain medication as soon as able. Please do not use other medications that may cause drowsiness (other pain medications, anxiety pills, cold medications, sleeping pills, etc) while using the prescription pain medication. Do not use alcohol while using the pain medication. You may use acetaminophen or Tylenol for pain management, however, please ensure you are not using over 4000 mg or 4 grams of acetaminophen per day from all sources. Your pain medication has 325mg of acetaminophen per tablet. At this time, please do not use ibuprofen ( Motrin, Advil) or naproxen (Aleve) for pain management as you are using the Eliquis. When the Eliquis course is completed in 5 weeks, you could use ibuprofen or naproxen for pain management (if this is allowed by your primary care provider). Wear the JOCE hose during the day and you may remove these at night. Elevate the limb to decrease swelling. Place ice to the area often. Place a towel between your skin and the blue pad. Use the incentive spirometer often. Take deep breaths throughout the day. Please keep the dressing in place until follow-up. Notify the Clinic if the dressing becomes saturated. Increase your protein intake while you are healing. If you have diabetes, please closely monitor your blood sugars and notify your primary care provider with abnormal values. Elevated blood sugars increases the risk of infection. Call the Clinic with questions or concerns - [phone]. - Discharge Plan *PRESCRIPTION DRUG MONITORING PROGRAM REVIEWED*: No *COPY OF PRESCRIPTION DRUG MONITORING REPORT IN PATIENT KADY: No Prescriptions/Med Rec: Acetaminophen/oxyCODONE [Percocet 325-5 MG] 1 - 2 tab PO Q4H PRN #60 tablet PRN Reason: Pain Apixaban [Eliquis] 2.5 mg PO BID #70 tablet Cyclobenzaprine [Flexeril] 10 mg PO TID PRN #40 tablet PRN Reason: Spasms Home Medications: Home Meds Aspirin [Ecotrin EC] 162 mg PO DAILY 05/10/19 [History] Cholecalciferol (Vitamin D3) [Vitamin D3] 5,000 unit PO DAILY 05/10/19 [History] Metoprolol Succinate 12.5 mg PO BEDTIME 05/10/19 [History] Multivitamin [Daily [place]] 1 tab PO DAILY 05/10/19 [History] Acetaminophen/oxyCODONE [Percocet 325-5 MG] 1 - 2 tab PO Q4H PRN #60 tablet 05/19 [Rx] Apixaban [Eliquis] 2.5 mg PO BID #70 tablet 05/12/19 [Rx] Bisacodyl [Dulcolax] 5 mg PO DAILY PRN tablet 05/12/19 [Rx] Cyclobenzaprine [Flexeril] 10 mg PO TID PRN #40 tablet 05/12/19 [Rx] Docusate Sodium [Colace] 100 mg PO BID cap 05/12/19 [Rx] Famotidine [Pepcid] 20 mg PO Q12H tablet 05/12/19 [Rx] Sennosides [Senna] 8.6 mg PO BID PRN tablet 05/12/19 [Rx] Patient Handouts: Total Hip Replacement, Knay-xx-Yret, Apixaban oral tablets Referrals: Lala Pastor MD [Consulting Physician] - 05/30/19 1:00 pm (please attend the scheduled follow up appointment with Dr. Pastor as listed) Jyoti Sanchez PA-C [Physician Manager Metal] - (follow up appointments 05/18/19 at 100 ; 05/23/19 115 ; and 06/22/19 at 1215) - Discharge Summary/Plan Comment DC Time >30 min.: No - Patient Data Vitals - Most Recent: Last Vital Signs Temp 97.5 F 05/12/19 09:11 Pulse 57 L 05/12/19 09:11 Resp 18 05/12/19 09:11 BP 108/63 05/12/19 09:11 Pulse Ox 99 05/12/19 09:11 Weight - Most Recent: 188 lb 14.4 oz I&O - Last 24 hours: Intake & Output 05/12/19 05/12/19 05/12/19 06:59 14:59 22:59 Intake Total 950 120 Output Total 1750 Balance -800 120 Lab Results - Last 24 hrs: Laboratory Results - last 24 hr 05/12/19 05/12/19 Range/Units 05:25 05:25 WBC 11.44 H (4.23-9.07) K/mm3 RBC 4.82 (4.63-6.08) M/mm3 Hgb 14.2 (13.7-17.5) gm/dl Hct 41.8 (40.1-51.0) % MCV 86.7 (79.0-92.2) fl MCH 29.5 (25.7-32.2) pg MCHC 34.0 (32.2-35.5) g/dl RDW Std Deviation 39.7 (35.1-43.9) fL Plt Count 255 (163-337) K/mm3 MPV 9.1 L (9.4-12.3) fl Sodium 136 (136-145) mEq/L Potassium 4.1 (3.5-5.1) mEq/L Chloride 103 (98-107) mEq/L Carbon Dioxide 26 (21-32) mEq/L Anion Gap 11.1 (5-15) BUN 20 H (7-18) mg/dL Creatinine 1.2 (0.7-1.3) mg/dL Est Cr Clr Drug Dosing 70.95 mL/min Estimated GFR (MDRD) > 60 (>60) mL/min BUN/Creatinine Ratio 16.7 (14-18) Glucose 133 H (80-115) mg/dL Calcium 8.4 L (8.5-10.1) mg/dL Total Bilirubin 0.6 (0.2-1.0) mg/dL AST 34 (15-37) U/L ALT 31 (16-63) U/L Alkaline Phosphatase 62 (46-116) U/L Total Protein 6.2 L (6.4-8.2) g/dl Albumin 3.2 L (3.4-5.0) g/dl Globulin 3.0 gm/dL Albumin/Globulin Ratio 1.1 (1-2) Med Orders - Current: Current Medications Apixaban (Eliquis) 2.5 mg PO BID [facility] Last Admin: 05/12/19 09:18 Dose: 2.5 mg Aspirin (Halfprin) 81 mg PO DAILY [facility] Last Admin: 05/12/19 09:18 Dose: 81 mg Bisacodyl (Dulcolax) 5 mg PO DAILY PRN PRN Reason: Constipation Cholecalciferol (Vitamin D3) 5,000 unit PO DAILY [facility] Last Admin: 05/12/19 09:18 Dose: 5,000 unit Cyclobenzaprine HCl (Flexeril) 10 mg PO TID PRN PRN Reason: Spasms Last Admin: 05/11/19 20:40 Dose: 10 mg Docusate Sodium (Colace) 100 mg PO BID [facility] Last Admin: 05/12/19 09:18 Dose: 100 mg Famotidine (Pepcid) 20 mg PO Q12H [facility] Last Admin: 05/12/19 09:17 Dose: 20 mg Hydromorphone HCl (Dilaudid) 0.2 mg IVPUSH Q2H PRN PRN Reason: Pain (moderate 4-6) Ketorolac Tromethamine (Toradol) 15 mg IVPUSH Q6H PRN PRN Reason: Pain Last Admin: 05/11/19 19:30 Dose: 15 mg Magnesium Hydroxide (Milk Of Magnesia) 30 ml PO BID PRN PRN Reason: Constipation Metoprolol Succinate (Toprol Xl) 25 mg PO BEDTIME [facility] Last Admin: 05/11/19 20:40 Dose: 25 mg Multivitamins (Thera) 1 each PO DAILY [facility] Last Admin: 05/12/19 09:17 Dose: 1 each Naloxone HCl (Narcan) 0.1 mg IVPUSH Q5M PRN PRN Reason: Oversedation Ondansetron HCl (Zofran) 4 mg IVPUSH Q6H PRN PRN Reason: Nausea/Vomiting Oxycodone/Acetaminophen (Percocet 325-5 Mg) 1 - 2 tab PO Q4H PRN PRN Reason: Pain Last Admin: 05/12/19 06:22 Dose: 2 tab Senna (Senna) 8.6 mg PO BID PRN PRN Reason: Constipation Discontinued Medications Acetaminophen (Tylenol) 975 mg PO ONETIME [facility] Stop: 05/11/19 14:00 Last Admin: 05/11/19 08:13 Dose: 975 mg Bupivacaine HCl (Sensorcaine-Mpf 0.25%) Confirm Administered Dose 30 ml .ROUTE .STK-MED ONE Stop: 05/11/19 07:59 Last Admin: 05/11/19 11:06 Dose: 30 ml Cefazolin Sodium (Ancef) Confirm Administered Dose 2 gm .ROUTE .STK-MED ONE Stop: 05/11/19 07:39 Last Admin: 05/11/19 10:58 Dose: 2 gm Cefazolin Sodium (Ancef) 2 gm .ROUTE .STK-MED ONE Stop: 05/11/19 08:01 Epinephrine HCl 0.3 mg/Cefuroxime Sodium 750 mg/Ketorolac Tromethamine 30 mg/ Sodium Chloride 27.9 ml 0 mg .XX ONETIME ONE Stop: 05/11/19 06:38 Last Admin: 05/11/19 11:07 Dose: 780.3 mg Dexamethasone (Dexamethasone) Confirm Administered Dose 20 mg .ROUTE .STK-MED ONE Stop: 05/11/19 09:55 Famotidine (Pepcid) 20 mg PO Q12H [facility] Last Admin: 05/11/19 13:11 Dose: Not Given Fentanyl (Sublimaze) Confirm Administered Dose 100 mcg .ROUTE .STK-MED ONE Stop: 05/11/19 07:38 Fentanyl (Sublimaze) 50 mcg IVPUSH Q5M PRN PRN Reason: Pain Stop: 05/11/19 18:00 Hydromorphone HCl (Dilaudid) 0.5 mg IVPUSH Q10M PRN PRN Reason: Pain (severe 7-10) Stop: 05/11/19 18:00 Lactated Ringer's (Ringers, Lactated) 1,000 mls @ 125 mls/hr IV ASDIRECTED [facility] Stop: 05/11/19 23:00 Last Admin: 05/11/19 08:40 Dose: 125 mls/hr Lidocaine HCl (Xylocaine-Mpf 1%) Confirm Administered Dose 4 mls @ as directed .ROUTE .STK-MED ONE Stop: 05/11/19 07:38 Cefazolin Sodium/Dextrose 2 gm (/ Premix) 50 mls @ 100 mls/hr IV Q8H [facility] Stop: 05/12/19 07:59 Last Admin: 05/12/19 06:30 Dose: 100 mls/hr Iodine (Iodine 2% Mild Tincture) Confirm Administered Dose 30 ml .ROUTE .STK- MED ONE Stop: 05/11/19 07:51 Last Admin: 05/11/19 11:00 Dose: 18 ml Ketorolac Tromethamine (Toradol) Confirm Administered Dose 30 mg .ROUTE .STK- MED ONE Stop: 05/11/19 11:29 Lidocaine/Sodium Bicarbonate (Buffered Lidocaine 1% In Ns 8.4%) 0.25 ml IDERM ONETIME PRN PRN Reason: Prior to IV Start Stop: 05/11/19 23:00 Last Admin: 05/11/19 08:40 Dose: 0.25 ml Midazolam HCl (Versed 1 Mg/Ml) Confirm Administered Dose 2 mg .ROUTE .STK-MED ONE Stop: 05/11/19 07:38 Ondansetron HCl (Zofran) Confirm Administered Dose 4 mg .ROUTE .STK-MED ONE Stop: 05/11/19 09:55 Ondansetron HCl (Zofran) 4 mg IVPUSH ONETIME PRN PRN Reason: Nausea/Vomiting Stop: 05/11/19 18:00 Oxycodone HCl (Oxycontin) 10 mg PO ONETIME [facility] Stop: 05/11/19 14:00 Last Admin: 05/11/19 08:13 Dose: 10 mg Pregabalin (Lyrica) 50 mg PO ONETIME [facility] Stop: 05/11/19 14:00 Last Admin: 05/11/19 08:14 Dose: 50 mg Propofol (Diprivan 20 Ml) Confirm Administered Dose 600 mg .ROUTE .STK-MED ONE Stop: 05/11/19 07:38 Propofol (Diprivan 20 Ml) Confirm Administered Dose 600 mg .ROUTE .STK-MED ONE Stop: 05/11/19 10:47 Sodium Chloride (Saline Flush) 10 ml FLUSH ASDIRECTED PRN PRN Reason: Keep Vein Open Stop: 05/11/19 23:00 Tranexamic Acid (Cyklokapron) Confirm Administered Dose 1,000 mg .ROUTE .STK- MED ONE Stop: 05/11/19 07:51 Last Admin: 05/11/19 11:09 Dose: 1,000 mg Vancomycin HCl (Vancomycin) Confirm Administered Dose 1 gm .ROUTE .STK-MED ONE Stop: 05/11/19 07:51 Last Admin: 05/11/19 11:08 Dose: 1 gm
--- NOTE | 2019-05-17 16:25 | PCM.OPNOTE ---
- General Post-Op/Procedure Note Date of Surgery/Procedure: 05/11/19 Operative Procedure(s): right total hip arthroplasty Pre Op Diagnosis: right hip osteoarhtrosis Post-Op Diagnosis: Same Anesthesia Technique: Local, MAC, Spinal Primary Surgeon: Julio Cesar Washington Anesthesia Provider: Shae Saravia Fisher Scallop: Jyoti Sanchez Fisher Scallop: Ijeoma Moore EBL in mLs: 250 Complications: None Condition: Good Free Text/Narrative:: 58 cup 9 stem 36+0
--- NOTE | 2019-05-17 17:02 | OR ---
DATE OF OPERATION: 05/11/2019 SURGEON: Julio Cesar Washington MD OPERATION PERFORMED: Right total hip arthroplasty. PREOPERATIVE DIAGNOSIS: Right hip osteoarthrosis. POSTOPERATIVE DIAGNOSIS: Right hip osteoarthrosis. ANESTHESIA: Local MAC with spinal. ANESTHESIA PROVIDER: Juan Cortez. ASSISTANTS: Jyoti Sanchez PA-C and Ijeoma Moore LPN. ESTIMATED BLOOD LOSS: 250 mL. COMPLICATIONS: None. CONDITION: Stable. IMPLANTS: 1. Adali size 58 mm solid Tritanium II acetabular cup. 2. [place] size 9 Accolade II stem. 3. Adali size 36, +0 Biolox femoral head. DESCRIPTION OF PROCEDURE: The patient was identified in the preop holding area. Proper site was marked and identified by the surgeon. The patient was taken back to the operating theater where after adequate anesthesia, the patient was placed in a left lateral decubitus position. Axillary roll was placed. Pegs were then placed and all bony prominences were well padded. The patient's gluteal fold was parallel to the floor. At this time, right hip was then sterilely prepped and draped in the usual sterile fashion. OR time-out was performed. The patient received 2 g IV Ancef. At this time, standard posterior incision was made centered over the greater trochanter. This was taken down to the IT band and gluteal fascia, which was incised along the incisional length. Charnley retractor was then placed. Take down of the short external rotators as well the capsulotomy was performed from the level of the piriformis down to the lesser trochanter. The hip was then dislocated. Neck cut was then completed and found to be adequate. Attention was turned to the acetabulum. Anterior and posterior acetabular retractors were then placed. Circumferential removal of the labrum as well as the pulvinar was done at this time. Starting with a 52 reamer, I was able to ream medially and then up to 58, which was found to have good purchase. 58 mm Tritanium II acetabular cup was then impacted in place in roughly 50 degrees of abduction and 20 to 30 degrees of anteversion. The 36 mm flat liner was then impacted into place and attention was turned to the femur. Box chisel was used out laterally. Starter awl was placed down the canal. Starting with the 0 broach, I was able to broach up to a size 9, which was found to be rotationally and vertically stable. Trial implants were then placed with +0. This had adequate scientology of leg lengths and was stable throughout range of motion. A bone hook was then used to dislocate the trial implants. The size 9 Accolade II stem was then impacted into place after the trial implants were removed and the 36, +0 Biolox femoral head was impacted in place. The patient's hip was reduced. A #5 Ethibond suture was closed for the short external rotators and capsule. 1 L dilute Betadine solution was irrigated through the hip along with 3 L of pulse lavage irrigation with Ancef. Topical tranexamic acid and vancomycin powder were then applied. A #2 barbed suture was used for closure of the IT band and gluteal fascia, 2-0 Vicryl was used subcutaneously, and Prineo was used for the skin. The patient tolerated the procedure well and sent to PACU in stable condition. MMODAL /[id number]
== END 2019-05-12 11:36 | disposition home or self-care (01) | DRG 301 ==
LOC: JD.MS 07:51
PROVIDERS: ADMIT Orthopaedic Surgery; ATTEND Orthopaedic Surgery
PROC: 0SR90JZ Replacement of Right Hip Joint with Synthetic Substitute, Open Approach (ICD-10-PCS; principal; 2019-05-11)
DX: M16.11 Unilateral primary osteoarthritis, right hip (principal); Z79.82 Long term (current) use of aspirin; Z79.899 Other long term (current) drug therapy; Z88.5 Allergy status to narcotic agent; I48.91 Unspecified atrial fibrillation; M47.812 Spondylosis without myelopathy or radiculopathy, cervical region; Z86.711 Personal history of pulmonary embolism; M51.36 Other intervertebral disc degeneration, lumbar region; Z98.1 Arthrodesis status; Z79.01 Long term (current) use of anticoagulants
CPT/HCPCS: 01214; 36415; 73501-26-RT; 73501-RT; 80053; 85027; 86850; 86900; 86901; 87641; 97110-GP; 97116-GP; 97161-GP; 97165-GO; 97535-GO; A9270-GY; C1776; J0171; J0690; J0697; J1100; J1885; J2001; J2250; J2405; J2704; J3010; J3370; J3490; J7120